=== PATIENT | female | born 1955 | race Caucasian/White ===

== ENCOUNTER 2020-10-01 16:55 | Inpatient (IN) | payer MEDICARE, BC ==
[~2020-10-01] VITALS: Ht 172.7 cm; Wt 113.6 kg
[2020-10-01 17:39] LABS: HEMOGLOBIN 12.3 gm/dl (12.3-15.3); RED BLOOD COUNT 3.91 M/UL (4.00-5.10); WHITE BLOOD COUNT 10.2 K/UL (4.5-11.0)
[2020-10-02] MEDS ORDERED: SUMATRIPTAN SU100 MG PO (02:00)
[2020-10-02] MEDS ORDERED: COLCHICINE0.6 MG PO (02:17)
[2020-10-02] MEDS ORDERED: TIZANIDINE HCL4 MG PO (02:18)
[2020-10-02] MEDS ORDERED: PREGABALIN75 MG PO (02:18)
[2020-10-02] MEDS ORDERED: FREESTYLE LIBR1 EAC3 MC (02:18)
[2020-10-02] MEDS ORDERED: ONDANSETRON HCL8 MG PO (02:19)
[2020-10-02] MEDS ORDERED: BUSPIRONE HCL30 MG PO (02:19)
[2020-10-02] MEDS ORDERED: BUTALB-ACETAMI1 EACH PO (02:19)
[2020-10-02] MEDS ORDERED: POTASSIUM CHLO10 ME2 PO (02:20)
[2020-10-02] MEDS ORDERED: ROPINIROLE HCL1 MG PO (02:20)
[2020-10-02] MEDS ORDERED: MORPHINE SULFAT15 M2 PO (02:22)
[2020-10-02] MEDS ORDERED: CLARITIN 10MG T10 MG PO (02:22)
[2020-10-02] MEDS ORDERED: OZEMPIC1 MG/0.75 SQ (02:50)
[2020-10-02] MEDS ORDERED: OXYCODONE HCL20 MG PO (02:50)
[2020-10-02] MEDS ORDERED: SPIRONOLACTONE100 MG PO (02:50)
[2020-10-02] MEDS ORDERED: ONDANSETRON ODT4 MG PO (02:51)
[2020-10-02] MEDS ORDERED: FREESTYLE LIBR1 EAC5 MC (02:51)
[2020-10-02] MEDS ORDERED: TRADJENTA5 MG PO (02:51)
[2020-10-02] MEDS ORDERED: HYDROXYZINE HCL50 MG PO (02:51)
[2020-10-02] MEDS ORDERED: MONTELUKAST SOD10 MG PO (02:51)
[2020-10-02] MEDS ORDERED: METOPROLOL SUCC25 MG PO (02:52)
[2020-10-02] MEDS ORDERED: OZEMPIC0.25 MG/0. SQ (02:52)
[2020-10-02] MEDS ORDERED: XYLOCAINE 5% OI35 GM TOP (02:52)
[2020-10-02] MEDS ORDERED: LEVOTHYROXINE112 MCG PO (02:53)
[2020-10-02] MEDS ORDERED: TORSEMIDE100 MG PO (02:54)
[2020-10-02 04:32] LABS: HEMOGLOBIN 10.9 gm/dl (12.3-15.3)
[2020-10-02 04:33] LABS: RED BLOOD COUNT 3.51 M/UL (4.00-5.10)
[2020-10-03 05:59] LABS: HEMOGLOBIN 10.4 gm/dl (12.3-15.3); RED BLOOD COUNT 3.33 M/UL (4.00-5.10); WHITE BLOOD COUNT 6.6 K/UL (4.5-11.0)
[2020-10-03] MEDS ORDERED: CEFUROXIME500 MG PO (08:57)
== END 2020-10-03 14:29 | disposition home or self-care (01) | DRG 872 ==
LOC: ER1 16:55 → CDU 18:05 → MED SURG 4 18:05
PROVIDERS: Emergency Medicine; Physician Assistant Medical; ADMIT Internal Medicine
DX: A41.9 Sepsis, unspecified organism (principal); N30.00 Acute cystitis without hematuria; E87.1 Hypo-osmolality and hyponatremia; N16 Renal tubulo-interstitial disorders in diseases classified elsewhere; B96.20 Unspecified Escherichia coli [E. coli] as the cause of diseases classified elsewhere; N18.30 Chronic kidney disease, stage 3 unspecified; I12.9 Hypertensive chronic kidney disease with stage 1 through stage 4 chronic kidney disease, or unspecified chronic kidney disease; Z20.822 Contact with and (suspected) exposure to COVID-19; E03.9 Hypothyroidism, unspecified; K75.81 Nonalcoholic steatohepatitis (NASH); E87.6 Hypokalemia; J45.909 Unspecified asthma, uncomplicated; E11.22 Type 2 diabetes mellitus with diabetic chronic kidney disease; Z79.4 Long term (current) use of insulin; Z88.0 Allergy status to penicillin; Z88.1 Allergy status to other antibiotic agents; Z91.041 Radiographic dye allergy status; Z80.3 Family history of malignant neoplasm of breast; Z83.3 Family history of diabetes mellitus; Z82.5 Family history of asthma and other chronic lower respiratory diseases
CPT/HCPCS: 36415; 71045; 80048; 80053; 81001; 82550; 82553; 82962; 83605; 83735; 83874; 83880; 84484; 85025; 85027; 87040; 87077; 87086; 87186; 96374; 99285; J0696; J1650; J2405; J3475; J7030; Q0177; U0002